=== PATIENT | female | born 2000 | race Caucasian/White ===

== ENCOUNTER 2024-12-10 18:28 | Emergency (ER) | payer BC ==
[2024-12-10 20:03] LABS: #Basophils 0.1 thou/uL (0.0-0.2); #Eosinophils 0.1 thou/uL (0.0-0.7); #Lymphocytes 2.3 thou/uL (1.20-3.40); #Monocytes 0.6 thou/uL (0.11-0.59); #Neutrophils 7.0 thou/uL (1.40-6.50); %Basophils 0.9 % (0.0-1.0); %Eosinophils 1.3 % (0.0-10.0); %Lymphocytes 22.9 % (21.0-51.0); %Monocytes 5.5 % (0.0-10.0); %Neutrophils 69.3 % (42.0-75.0); Hematocrit 37.7 % (36.0-47.0); Hemoglobin 12.8 g/dL (12.0-16.0); Mean Corpuscular Hemoglobin 30.8 pg (27.0-31.0); Mean Corpuscular Volume 90.6 fl (78.0-98.0); Platelet Count 303 10x3/uL (130-400); Red Blood Cell (RBC) Count 4.16 mill/uL (4.20-5.40); White Blood Cell (WBC) Count 10.1 10x3/uL (4.8-10.8)
[2024-12-10 20:26] LABS: ALT (SGPT) 23 U/L (Less than 34); AST (SGOT) 19 U/L (11-34); Albumin 4.1 g/dL (3.1-4.5); Alkaline Phosphatase 75 U/L (40-110); Anion Gap 14 mmol/L (10-20); BUN (Urea Nitrogen) 16 mg/dL (7.0-18.7); Bilirubin, Total 0.2 mg/dL (0.3-1.2); Calc. Creatinine Clearance 0 mL/min (70-130); Calcium 9.4 mg/dL (7.8-10.44); Carbon Dioxide 24 mmol/L (22-29); Chloride 106 mmol/L (98-107); Globulin 2.9 g/dL (2.4-3.5); Glucose 90 mg/dL (70-105); Potassium 4.1 mmol/L (3.5-5.1); Sodium 140 mmol/L (136-145)
[2024-12-10 20:49] LABS: Bacteria/HPF Rare-Few HPF (None Seen); CAUTI Indications for Culture Alt mental st,lethar; Glucose, Urine (Dipstick) Negative (Negative); Leukocyte Negative (Negative); Protein, Urine (Dipstick) Negative (Neg-Trace); RBC/HPF 0-3 HPF (0-3); Specific Gravity, Urine Greater/Equal 1.030 (1.005-1.030)
[2024-12-10 20:50] LABS: Urine Culture Reflex No No
== END 2024-12-10 20:57 | disposition home or self-care (01) ==
LOC: MADERS 18:28
DX: R20.2 Paresthesia of skin (principal); F17.290 Nicotine dependence, other tobacco product, uncomplicated
CPT/HCPCS: 36415; 70450; 80053; 81001; 84443; 85025